=== PATIENT | male | born 2000 ===

== ENCOUNTER 2021-10-20 03:33 | Emergency (ER) | payer SELFPAY ==
[2021-10-20 04:45] LABS: ESTIMATED GFR 130 mL/min (>60)
== END 2021-10-20 10:55 | disposition home or self-care (01) ==
LOC: FB.ED 03:33
DX: S00.83XA Contusion of other part of head, initial encounter (principal); E87.6 Hypokalemia; F10.129 Alcohol abuse with intoxication, unspecified; F91.3 Oppositional defiant disorder; Z79.899 Other long term (current) drug therapy; W01.10XA Fall on same level from slipping, tripping and stumbling with subsequent striking against unspecified object, initial encounter
CPT/HCPCS: 36415; 80053; 80307; 83735; 85025; 99284; 99285